=== PATIENT | female | born 1960 | race Two or more races ===

== ENCOUNTER 2018-09-19 11:56 | Outpatient (CLI) | payer OTHER ==
[2018-09-19] MEDS ORDERED: BUFFERED LIDOCAINE 10 ML SYRINGE ONE (12:16)
[2018-09-19] MEDS ORDERED: IOTHALAMATE MEGLUMINE 50 ML VIAL ONE (12:16)
[2018-09-19] MEDS ORDERED: GADOPENTETATE DIMEGLUMINE 5 ML VIAL IVP ONE ×2 (12:17→13:38)
[2018-09-19] MEDS ORDERED: BUFFERED LIDOCAINE 10 ML SYRINGE IU ONE (13:38)
[2018-09-19] MEDS ORDERED: IOTHALAMATE MEGLUMINE 50 ML VIAL IVP ONE (13:38)
--- NOTE | 2018-09-19 14:16 | XRAY Report ---
Reason: PAIN IN RIGHT SHOULDER Procedure Date: 09/19/2018 Accession Number: [id number] / [id number] Procedure: [place] - Arthrogram Needle Placement CPT Code: FULL RESULT: EXAM: RIGHT SHOULDER ARTHROGRAPHIC INJECTION WITH FLUOROSCOPIC GUIDANCE EXAM DATE: 09/19/2018 01:29 PM. CLINICAL HISTORY: Pain in right shoulder. COMPARISON: ARTHROGRAM SHOULDER RT 09/19/2018 1:05 PM. TECHNIQUE: The risks, benefits, and alternatives of the procedure were discussed with the patient. All questions were answered. Written and verbal consent were obtained. The glenohumeral joint was marked under fluoroscopy and prepped and draped in a sterile manner. Local anesthesia was performed with 1% lidocaine. A 22-gauge needle was then inserted into the glenohumeral joint. 10 mL of a solution containing 25% 1% lidocaine, 25% iodinated contrast, and a 1:200 dilution of gadolinium contrast in sterile saline was then injected. The needle was removed without immediate complication. Other: None. Fluoroscopy Time: 2 seconds. Number of Images: 6. FINDINGS: Bones and joints: No fracture or subluxation. Injection: Fluoroscopic images demonstrate needle placement and contrast in the glenohumeral joint. No contrast extravasation outside of the glenohumeral joint. IMPRESSION: Successful fluoroscopically-guided arthrographic injection of the shoulder. [facility]
--- NOTE | 2018-09-20 09:34 | MRI Report ---
Reason: PAIN IN RIGHT SHOULDER Procedure Date: 09/19/2018 Accession Number: [id number] / [id number] Procedure: MRI - Arthrogram Shoulder RT CPT Code: FULL RESULT: EXAM: RIGHT SHOULDER MRI ARTHROGRAM WITH CONTRAST EXAM DATE: 09/19/2018 01:05 PM. CLINICAL HISTORY: Pain in right shoulder. COMPARISON: None. TECHNIQUE: Multiplanar, multisequence T1-weighted and fluid-sensitive sequences of the shoulder after an arthrographic injection of dilute gadolinium, dictated under a separate exam. Other: None. FINDINGS: Rotator cuff: Some patchy areas of increased T2 signal involving the distal fibers of the infraspinatus and supraspinatus. No rotator cuff tear identified. No rotator cuff muscle atrophy or fatty replacement. Long head biceps tendon: Intact demonstrating normal course, signal and morphology. Labrum: Intact. No tear is identified. Bones and articular surfaces: No significant articular cartilage defects are seen. Acromioclavicular joint: Moderate degenerative change. Type II acromion. IMPRESSION: 1. Mild infraspinatus and supraspinatus tendinosis. 2. Mild degenerative change at the acromioclavicular joint. [facility]
== END 2018-09-19 11:57 | disposition home or self-care (01) ==
LOC: DI 11:56
PROVIDERS: ATTEND Family Medicine
DX: M19.011 Primary osteoarthritis, right shoulder (principal); M75.81 Other shoulder lesions, right shoulder
CPT/HCPCS: 23350; 73222; 77002; Q9961